=== PATIENT | male | born 1985 | race Caucasian/White ===

== ENCOUNTER 2022-06-17 16:20 | Emergency (ER) | payer MEDICAID ==
[~2022-06-17] VITALS: Ht 182.9 cm; Wt 75.0 kg
[2022-06-17 16:37] VITALS: BP 126/84
[2022-06-17] MEDS ORDERED: bacitracin 15gm ointment TP ONE (18:55)
[2022-06-17] MEDS ORDERED: LIDOCAINE 2%/EPI 1:100,000 inj. Multi-dose 20 ML VIAL IJ ONE (18:55)
== END 2022-06-17 20:01 | disposition home or self-care (01) ==
LOC: ER 16:22
DX: S01.81XA Laceration without foreign body of other part of head, initial encounter (principal); F17.200 Nicotine dependence, unspecified, uncomplicated; W19.XXXA Unspecified fall, initial encounter; Y93.89 Activity, other specified; Y92.89 Other specified places as the place of occurrence of the external cause; Y99.8 Other external cause status
CPT/HCPCS: 12001; 99282

== ENCOUNTER 2022-08-21 15:19 | Inpatient (IN) | payer BC, MEDICAID ==
[~2022-08-21] VITALS: Ht 182.9 cm; Wt 165.0 kg
[2022-08-21] MEDS ORDERED: ondansetron/PF 4mg/2ml inj IV ONE (15:50)
[2022-08-21] MEDS ORDERED: morphine 4 MG/ML inj SYRINge IV ONE (15:50)
[2022-08-21 15:59] LABS: BASOPHILS # (AUTO) 0.1 X10'3 (0-0.2); BASOPHILS % (AUTO) 0.7 % (0-1); EOSINOPHILS # (AUTO) 0.2 X10'3 (0-0.9); EOSINOPHILS % (AUTO) 1.5 % (0-6); HEMOGLOBIN 14.5 g/dl (14.0-17.9); LYMPHOCYTES # (AUTO) 3.3 X10'3 (1.1-4.8); LYMPHOCYTES % (AUTO) 23.9 % (21-51); MEAN CORPUSCULAR HEMOGLOBIN 28.2 PG (27.0-31.0); MEAN CORPUSCULAR HGB CONC 33.7 g/dL (33.0-36.5); MEAN CORPUSCULAR VOLUME 83.6 FL (78-98); MEAN PLATELET VOLUME 8.4 FL (7.4-10.4); MONOCYTES # (AUTO) 1.2 X10'3 (0-0.9); MONOCYTES % (AUTO) 8.4 % (2-12); NEUTROPHILS % (AUTO) 65.5 % (42-75); PLATELET COUNT 321 X10'3 (140-440); RED BLOOD COUNT 5.15 X10'6 (4.70-6.10); WHITE BLOOD COUNT 13.7 X10'3 (4.5-11.0)
[2022-08-21 16:09] LABS: ALANINE AMINOTRANSFERASE 47 U/L (12-78); ALBUMIN 3.9 G/DL (3.4-5.0); ALBUMIN/GLOBULIN RATIO 1.1 (1.1-1.5); ALKALINE PHOSPHATASE 95 IU/L (46-116); ANION GAP 8 (8-16); ASPARTATE AMINO TRANSFERASE 20 U/L (10-37); BILIRUBIN,TOTAL 0.2 MG/DL (0.1-1.0); BLOOD UREA NITROGEN 9 MG/DL (7-18); BUN/CREATININE RATIO 10.2 (10.0-20.0); CALCIUM 9.2 MG/DL (8.5-10.1); CHLORIDE 107 MMOL/L (99-107); CREATININE 0.88 MG/DL (0.60-1.10); GLUCOSE 99 MG/DL (70-104); LIPASE 269 U/L (73-393); POTASSIUM 3.9 MMOL/L (3.5-5.1); SODIUM 141 MMOL/L (135-145); TOTAL CARBON DIOXIDE 26.1 MMOL/L (24-32); TOTAL PROTEIN 7.5 G/DL (6.4-8.2); eGFR > 90 ML/MIN
[2022-08-21 16:25] LABS: CLARITY,URINE CLEAR (Clear); COLOR,URINE YELLOW (Yellow); GLUCOSE, URINE NEGATIVE (Neg); KETONES,URINE NEGATIVE (Neg); LEUKOCYTE ESTERASE ,URINE NEGATIVE (Neg); NITRITES, URINE NEGATIVE (Neg); OCCULT BLOOD,URINE NEGATIVE (Neg); PROTEIN,URINE NEGATIVE (Neg); UROBILINOGEN,URINE 0.2 E.U/dL (0.2-1.0)
[2022-08-21 16:26] LABS: UA COLLECTION TYPE CLN CATCH MIDSTREAM
[2022-08-21] MEDS ORDERED: HYDROmorphone 1 mg/ml syringe IV ONE ×2 (16:45→19:35)
--- NOTE | 2022-08-21 17:00 | NUR ---
REPORT GIVEN TO SUN FIGUEROA. PT GOING TO ROOM 6201N
[2022-08-21] MEDS ORDERED: diphenhydrAMINE 25mg capsule PO PRN (19:25)
[2022-08-21] MEDS ORDERED: magnesium 4gm in 100ml NS 100 ML IV PRN (19:25)
[2022-08-21] MEDS ORDERED: HYDROmorphone/PF 0.2 MG/ML SYRINGE IV PRN (19:25)
[2022-08-21] MEDS ORDERED: potassium Cl 40MEQ/1/2NS 520ml 520 ML IV PRN (19:25)
[2022-08-21] MEDS ORDERED: mag hydrox/Alum hydrox/simeth 30ml oral suspension PO PRN (19:25)
[2022-08-21] MEDS ORDERED: magnesium hydroxide 30ml (MOM) UD suspension PO PRN (19:25)
[2022-08-21] MEDS ORDERED: magnesium Cl slow-release 64mg tablet PO PRN (19:25)
[2022-08-21] MEDS ORDERED: ondansetron/PF 4mg/2ml inj IV PRN (19:25)
[2022-08-21] MEDS ORDERED: HYDROmorphone inj. 0.5 MG/0.5 ML DISP.SYRIN IV PRN (19:25)
[2022-08-21] MEDS ORDERED: magnesium 2GM in 50ml NS 50 ML IV PRN (19:25)
[2022-08-21] MEDS ORDERED: acetaminophen 325mg tablet PO PRN (19:25)
[2022-08-21] MEDS ORDERED: potassium Cl 20 mEq SR tablet PO PRN ×2 (19:25)
[2022-08-21] MEDS: dextrose 5%-1/2 normal saline 1,000 ML IV SCH (19:44)
[2022-08-21] MEDS: K and/or MAG REPLACEMENT MC SCH (20:11)
[2022-08-21] MEDS: enoxaparin 40mg/0.4ml syringe SQ SCH (20:14)
[2022-08-21] MEDS: docusate sod 100mg capsule PO SCH (20:14)
[2022-08-21] MEDS: HYDROmorphone inj. 0.5 MG/0.5 ML DISP.SYRIN IV PRN (23:51)
[2022-08-22] VITALS (15 sets, daily range): BP systolic 108–138; BP diastolic 62–84
[2022-08-22] MEDS: piperacillin/tazo 3.375gm/50ml 50 ML IV SCH ×4 (00:40→23:41)
[2022-08-22] MEDS ORDERED: NO HOME MEDS (02:39)
[2022-08-22] MEDS: HYDROmorphone inj. 0.5 MG/0.5 ML DISP.SYRIN IV PRN ×4 (03:55→21:13)
[2022-08-22] MEDS: dextrose 5%-1/2 normal saline 1,000 ML IV SCH ×2 (05:54→15:31)
[2022-08-22 06:50] LABS: BASOPHILS % (AUTO) 0.4 % (0-1); EOSINOPHILS # (AUTO) 0.1 X10'3 (0-0.9); EOSINOPHILS % (AUTO) 0.5 % (0-6); HEMATOCRIT 38.6 % (42.0-52.0); HEMOGLOBIN 13.3 g/dl (14.0-17.9); LYMPHOCYTES % (AUTO) 15.3 % (21-51); MEAN CORPUSCULAR HEMOGLOBIN 28.5 PG (27.0-31.0); MEAN CORPUSCULAR HGB CONC 34.4 g/dL (33.0-36.5); MEAN CORPUSCULAR VOLUME 82.8 FL (78-98); MEAN PLATELET VOLUME 8.3 FL (7.4-10.4); MONOCYTES # (AUTO) 1.2 X10'3 (0-0.9); MONOCYTES % (AUTO) 9.1 % (2-12); NEUTROPHILS # (AUTO) 9.9 X10'3 (1.8-7.7); NEUTROPHILS % (AUTO) 74.7 % (42-75); PLATELET COUNT 299 X10'3 (140-440); RED BLOOD COUNT 4.66 X10'6 (4.70-6.10); RED CELL DISTRIBUTION WIDTH 13.1 % (11.5-14.5); WHITE BLOOD COUNT 13.3 X10'3 (4.5-11.0)
[2022-08-22 07:13] LABS: ALANINE AMINOTRANSFERASE 254 U/L (12-78); ALBUMIN 3.6 G/DL (3.4-5.0); ALBUMIN/GLOBULIN RATIO 1.1 (1.1-1.5); ALKALINE PHOSPHATASE 118 IU/L (46-116); ANION GAP 8 (8-16); ASPARTATE AMINO TRANSFERASE 172 U/L (10-37); BILIRUBIN,TOTAL 1.3 MG/DL (0.1-1.0); BLOOD UREA NITROGEN 6 MG/DL (7-18); BUN/CREATININE RATIO 6.5 (10.0-20.0); CALCIUM 8.4 MG/DL (8.5-10.1); CHLORIDE 103 MMOL/L (99-107); CREATININE 0.93 MG/DL (0.60-1.10); GLUCOSE 147 MG/DL (70-104); MAGNESIUM 2.1 MG/DL (1.5-2.4); POTASSIUM 3.5 MMOL/L (3.5-5.1); SODIUM 137 MMOL/L (135-145); TOTAL CARBON DIOXIDE 26.4 MMOL/L (24-32); eGFR > 90 ML/MIN
[2022-08-22] MEDS: pantoprazole 40mg Tablet.DR PO SCH (07:30)
[2022-08-22] MEDS: docusate sod 100mg capsule PO SCH ×2 (08:00→21:07)
[2022-08-22] MEDS: K and/or MAG REPLACEMENT MC SCH ×2 (08:00→20:00)
[2022-08-22] MEDS ORDERED: INDOCYANINE GREEN 25 MG/10 ML VIAL IV ONE (09:20)
[2022-08-22] MEDS ORDERED: BUPIVAcaine/PF 2.5 mg/ml (0.25%) 30ml vial ONE (10:03)
[2022-08-22] MEDS ORDERED: proCHLORperazine 10 MG/2 ml inj IV PRN (10:05)
[2022-08-22] MEDS ORDERED: morphine 4 MG/ML inj SYRINge IV PRN (10:05)
[2022-08-22] MEDS ORDERED: meperidine/PF 25mg/ml syringe IV PRN ×3 (10:05)
[2022-08-22] MEDS ORDERED: ondansetron/PF 4mg/2ml inj IV PRN ×2 (10:05→11:40)
[2022-08-22] MEDS ORDERED: morphine 2 MG/ML inj. syringe IV PRN (10:05)
[2022-08-22] MEDS ORDERED: ringers solution, lacted 1,000 ML IV SCH (10:05)
[2022-08-22] MEDS ORDERED: sevoflurane 250ml liquid IH ONE (10:25)
[2022-08-22] MEDS ORDERED: neostigmine methylsulfate 1 MG/ML 10ml vial ONE (10:25)
[2022-08-22] MEDS ORDERED: glycopyrrolate 0.2mg/ml inj ONE (10:25)
[2022-08-22] MEDS ORDERED: midazolam 1 mg/ML 2ml injection ONE (10:30)
[2022-08-22] MEDS ORDERED: fentaNYL/PF 50MCG/1 ML 2ML syringe ONE ×2 (10:30→10:40)
[2022-08-22] MEDS ORDERED: ondansetron/PF 4mg/2ml inj ONE (11:38)
[2022-08-22] MEDS ORDERED: dexamethasone sod phosphate 4mg/ml inj. ONE (11:38)
[2022-08-22] MEDS ORDERED: propofol inj 20 ML IV ONE (11:38)
[2022-08-22] MEDS ORDERED: rocuronium 10mg/ml inj IV ONE (11:38)
[2022-08-22] MEDS ORDERED: LIDOcaine 2% (20mg/ml) 5ml vial ONE (11:38)
[2022-08-22] MEDS ORDERED: sugammadex 200mg/2ml injection IV ONE (11:38)
[2022-08-22] MEDS ORDERED: naloxone 0.4 mg/ml inj IV PRN (11:40)
--- NOTE | 2022-08-22 11:40 | NUR ---
Received from OR via BED , accompanied by Anesthesiologist and report given by ALVARADO Anesthesiologist. PATIENT UNCONSCIOUS AND SEDATED WITH ETT TUBE, NO S/S OF PAIN, V/S WNL, SCD ON , PIV 18G RIGHT HAND, BANDAID LAPS SITES C/D/I TO ABDOMEN WITH SEROSANGUINEOUS DARYL DRAINAGE ON RIGHT LOWER ABDOMEN. Addendum: 08/22/22 at 1216 by Tevin Loyd RN Amended: Links added.
--- NOTE | 2022-08-22 12:19 | NUR ---
Patient in room ED 9. I have received report from Landon and had the opportunity to ask questions and assume patient care.
--- NOTE | 2022-08-22 12:35 | NUR ---
PATIENT HAS MET ALL CRITERIA FOR TRANSFER TO ORTHO FLOOR. VSS. DRESSINGS INTACT. BED LOW, CALL LIGHT PRESENT AND 2 RAILS UP. RN PRESENT TO ACCEPT CARE OF PATIENT AND REPORT HAS BEEN CALLED. ALL QUESTIONS ANSWERED TO ACCEPTING RN. Addendum: 08/22/22 at 1241 by Tevin Loyd RN Amended: Links added.
[2022-08-22] MEDS: HYDROcodone/acetaminophen 10/325mg tab PO PRN (16:37)
--- NOTE | 2022-08-22 16:39 | NUR ---
Current wt is not scaled and not accurate given pt presentation. Wt in lbs likely documented in kg. If true, pt 75 kg and BMI 22.4. Per EMR pt with chair scaled wt of 75 kg 06/17/22. Addendum: 08/22/22 at [address] Amended: Links added.
--- NOTE | 2022-08-22 18:25 | NUR ---
Problems reprioritized. Patient report given, questions answered & plan of care reviewed with Stacy.
[2022-08-22] MEDS: enoxaparin 40mg/0.4ml syringe SQ SCH (21:19)
[2022-08-23] MEDS: dextrose 5%-1/2 normal saline 1,000 ML IV SCH ×3 (01:25→21:25)
[2022-08-23] MEDS: HYDROmorphone inj. 0.5 MG/0.5 ML DISP.SYRIN IV PRN ×3 (01:45→09:46)
[2022-08-23 02:00] VITALS: BP 146/69
[2022-08-23 06:00] VITALS: BP 127/71
--- NOTE | 2022-08-23 06:24 | NUR ---
Problems reprioritized. Patient report given, questions answered & plan of care reviewed with Josselin GARSIA. Addendum: 08/23/22 at 0624 by Stacy Rahman RN Amended: Links added.
[2022-08-23 06:48] LABS: BASOPHILS # (AUTO) 0.1 X10'3 (0-0.2); BASOPHILS % (AUTO) 0.4 % (0-1); EOSINOPHILS % (AUTO) 0 % (0-6); HEMATOCRIT 36.9 % (42.0-52.0); HEMOGLOBIN 12.6 g/dl (14.0-17.9); LYMPHOCYTES # (AUTO) 1.7 X10'3 (1.1-4.8); LYMPHOCYTES % (AUTO) 9.2 % (21-51); MEAN CORPUSCULAR HEMOGLOBIN 28.5 PG (27.0-31.0); MEAN CORPUSCULAR HGB CONC 34.2 g/dL (33.0-36.5); MEAN CORPUSCULAR VOLUME 83.6 FL (78-98); MEAN PLATELET VOLUME 8.8 FL (7.4-10.4); MONOCYTES # (AUTO) 1.5 X10'3 (0-0.9); MONOCYTES % (AUTO) 8.1 % (2-12); NEUTROPHILS # (AUTO) 15.6 X10'3 (1.8-7.7); NEUTROPHILS % (AUTO) 82.3 % (42-75); PLATELET COUNT 294 X10'3 (140-440); RED BLOOD COUNT 4.41 X10'6 (4.70-6.10); RED CELL DISTRIBUTION WIDTH 12.9 % (11.5-14.5); WHITE BLOOD COUNT 18.9 X10'3 (4.5-11.0)
[2022-08-23 07:00] LABS: ALANINE AMINOTRANSFERASE 197 U/L (12-78); ALBUMIN 3.3 G/DL (3.4-5.0); ALBUMIN/GLOBULIN RATIO 0.9 (1.1-1.5); ALKALINE PHOSPHATASE 128 IU/L (46-116); ANION GAP 5 (8-16); ASPARTATE AMINO TRANSFERASE 63 U/L (10-37); BILIRUBIN,TOTAL 0.7 MG/DL (0.1-1.0); BLOOD UREA NITROGEN 4 MG/DL (7-18); BUN/CREATININE RATIO 4.3 (10.0-20.0); CALCIUM 8.6 MG/DL (8.5-10.1); CHLORIDE 102 MMOL/L (99-107); CREATININE 0.92 MG/DL (0.60-1.10); GLUCOSE 164 MG/DL (70-104); MAGNESIUM 2.2 MG/DL (1.5-2.4); POTASSIUM 3.6 MMOL/L (3.5-5.1); SODIUM 137 MMOL/L (135-145); TOTAL CARBON DIOXIDE 29.9 MMOL/L (24-32); TOTAL PROTEIN 6.9 G/DL (6.4-8.2); eGFR > 90 ML/MIN
[2022-08-23] MEDS: pantoprazole 40mg Tablet.DR PO SCH (07:53)
[2022-08-23] MEDS: docusate sod 100mg capsule PO SCH ×2 (07:53→19:30)
[2022-08-23] MEDS: K and/or MAG REPLACEMENT MC SCH ×2 (07:54→19:17)
[2022-08-23] MEDS: HYDROcodone/acetaminophen 10/325mg tab PO PRN (07:54)
[2022-08-23] MEDS: piperacillin/tazo 3.375gm/50ml 50 ML IV SCH ×3 (07:54→23:42)
[2022-08-23 10:00] VITALS: BP 143/83
--- NOTE | 2022-08-23 14:39 | NUR ---
patient reports passing flatus at this time. Continuing to encouraging ambulation as tolerated. Will continue to monitor
[2022-08-23 18:00] VITALS: BP 132/67
--- NOTE | 2022-08-23 18:22 | NUR ---
Problems reprioritized. Patient report given, questions answered & plan of care reviewed with Stacy GARSIA.
[2022-08-23] MEDS: enoxaparin 40mg/0.4ml syringe SQ SCH (19:28)
[2022-08-23] MEDS: oxyCODONE/APAP 5-325mg tablet PO PRN (19:30)
[2022-08-23 22:00] VITALS: BP 111/70
[2022-08-24] MEDS: oxyCODONE/APAP 5-325mg tablet PO PRN ×2 (00:17→04:26)
[2022-08-24] MEDS: HYDROmorphone inj. 0.5 MG/0.5 ML DISP.SYRIN IV PRN ×2 (02:19→12:28)
[2022-08-24 05:40] LABS: ALANINE AMINOTRANSFERASE 212 U/L (12-78); ALBUMIN 3.5 G/DL (3.4-5.0); ALKALINE PHOSPHATASE 138 IU/L (46-116); ANION GAP 7 (8-16); ASPARTATE AMINO TRANSFERASE 89 U/L (10-37); BILIRUBIN,TOTAL 0.8 MG/DL (0.1-1.0); BLOOD UREA NITROGEN 4 MG/DL (7-18); BUN/CREATININE RATIO 3.7 (10.0-20.0); CALCIUM 8.8 MG/DL (8.5-10.1); CHLORIDE 105 MMOL/L (99-107); CREATININE 1.09 MG/DL (0.60-1.10); GLUCOSE 119 MG/DL (70-104); MAGNESIUM 2.1 MG/DL (1.5-2.4); POTASSIUM 3.4 MMOL/L (3.5-5.1); SODIUM 141 MMOL/L (135-145); TOTAL PROTEIN 7.1 G/DL (6.4-8.2); eGFR 77 ML/MIN
[2022-08-24 06:05] LABS: BASOPHILS # (AUTO) 0.1 X10'3 (0-0.2); BASOPHILS % (AUTO) 0.8 % (0-1); EOSINOPHILS # (AUTO) 0.1 X10'3 (0-0.9); EOSINOPHILS % (AUTO) 0.4 % (0-6); HEMATOCRIT 38.9 % (42.0-52.0); LYMPHOCYTES # (AUTO) 3.8 X10'3 (1.1-4.8); LYMPHOCYTES % (AUTO) 24.1 % (21-51); MEAN CORPUSCULAR HEMOGLOBIN 28.3 PG (27.0-31.0); MEAN CORPUSCULAR HGB CONC 33.5 g/dL (33.0-36.5); MEAN CORPUSCULAR VOLUME 84.4 FL (78-98); MEAN PLATELET VOLUME 9.5 FL (7.4-10.4); MONOCYTES # (AUTO) 1.7 X10'3 (0-0.9); MONOCYTES % (AUTO) 10.6 % (2-12); NEUTROPHILS # (AUTO) 10.1 X10'3 (1.8-7.7); NEUTROPHILS % (AUTO) 64.1 % (42-75); PLATELET COUNT 318 X10'3 (140-440); RED BLOOD COUNT 4.61 X10'6 (4.70-6.10); RED CELL DISTRIBUTION WIDTH 13.2 % (11.5-14.5); WHITE BLOOD COUNT 15.8 X10'3 (4.5-11.0)
--- NOTE | 2022-08-24 06:33 | NUR ---
Patient in room ORTHO 4009. I have received report from [email or web address] and had the opportunity to ask questions and assume patient care.
[2022-08-24 06:34] VITALS: BP 128/62
[2022-08-24] MEDS: dextrose 5%-1/2 normal saline 1,000 ML IV SCH (07:25)
[2022-08-24] MEDS: pantoprazole 40mg Tablet.DR PO SCH (07:30)
[2022-08-24] MEDS: docusate sod 100mg capsule PO SCH (07:30)
[2022-08-24] MEDS: piperacillin/tazo 3.375gm/50ml 50 ML IV SCH (07:30)
[2022-08-24] MEDS: K and/or MAG REPLACEMENT MC SCH (08:00)
[2022-08-24] MEDS ORDERED: LORazepam 0.5 MG tablet PO PRN (09:50)
[2022-08-24 10:00] VITALS: BP 120/66
[2022-08-24] MEDS ORDERED: PER5325T PO (10:40)
--- NOTE | 2022-08-24 12:40 | NUR ---
Reviewed discharge instructions with patient. Patient verbalized understanding. Patient dressed himself, gathered his belongings and was wheeled downstairs by staff to be driven home by his father. DARYL drain pulled out, patient tolerated well. Patient was provided with surgeon's office number and advised to phone on Friday for a follow up appointment.
== END 2022-08-24 13:44 | disposition home or self-care (01) | DRG 416 ==
LOC: ER 15:20 → ED HOLD 19:33 → ORTHO 4S 08-22 12:35
PROVIDERS: ADMIT Internal Medicine; ATTEND Family Medicine
PROC: 8E0W0CZ Robotic Assisted Procedure of Trunk Region, Open Approach (ICD-10-PCS; 2022-08-22)
PROC: 0FT40ZZ Resection of Gallbladder, Open Approach (ICD-10-PCS; principal; 2022-08-22 10:25)
DX: K80.62 Calculus of gallbladder and bile duct with acute cholecystitis without obstruction (principal); F15.10 Other stimulant abuse, uncomplicated; D72.829 Elevated white blood cell count, unspecified; R74.01 Elevation of levels of liver transaminase levels; F17.210 Nicotine dependence, cigarettes, uncomplicated; Z71.6 Tobacco abuse counseling; Z71.51 Drug abuse counseling and surveillance of drug abuser
CPT/HCPCS: 99285; Z7506; Z7508; 36415; 74176; 76700; 80053; 81003; 83690; 83735; 84132; 85025; 87081; A4215; A4615; A4618; A6402; A7000; G0378; J1100; J1170; J1650; J2175; J2250; J2270; J2405; J2543; J2704; J2710; J3010; J3490; J7070; J7120

== ENCOUNTER 2023-10-19 17:22 | Emergency (ER) | payer BC, MEDICAID ==
[~2023-10-19] VITALS: Ht 182.9 cm; Wt 82.7 kg
[2023-10-19 18:48] LABS: BASOPHILS # (AUTO) 0.1 X10'3 (0-0.2); BASOPHILS % (AUTO) 0.7 % (0-1); EOSINOPHILS # (AUTO) 0.1 X10'3 (0-0.9); EOSINOPHILS % (AUTO) 0.9 % (0-6); HEMATOCRIT 34.8 % (42.0-52.0); HEMOGLOBIN 11.9 g/dl (14.0-17.9); LYMPHOCYTES # (AUTO) 2.3 X10'3 (1.1-4.8); LYMPHOCYTES % (AUTO) 23.5 % (21-51); MEAN CORPUSCULAR HEMOGLOBIN 29.3 PG (27.0-31.0); MEAN CORPUSCULAR HGB CONC 34.2 g/dL (33.0-36.5); MEAN CORPUSCULAR VOLUME 85.7 FL (78-98); MEAN PLATELET VOLUME 8.9 FL (7.4-10.4); MONOCYTES # (AUTO) 1.1 X10'3 (0-0.9); MONOCYTES % (AUTO) 11.3 % (2-12); NEUTROPHILS # (AUTO) 6.3 X10'3 (1.8-7.7); NEUTROPHILS % (AUTO) 63.6 % (42-75); PLATELET COUNT 275 X10'3 (140-440); RED BLOOD COUNT 4.07 X10'6 (4.70-6.10); RED CELL DISTRIBUTION WIDTH 13.3 % (11.5-14.5)
[2023-10-19 18:54] LABS: ALANINE AMINOTRANSFERASE 57 U/L (12-78); ALBUMIN 3.7 G/DL (3.4-5.0); ALBUMIN/GLOBULIN RATIO 1.1 (1.1-1.5); ALKALINE PHOSPHATASE 85 IU/L (46-116); ANION GAP 8 (8-16); ASPARTATE AMINO TRANSFERASE 22 U/L (10-37); BILIRUBIN,TOTAL 0.9 MG/DL (0.1-1.0); BLOOD UREA NITROGEN 12 MG/DL (7-18); BUN/CREATININE RATIO 10.4 (10.0-20.0); CALCIUM 8.4 MG/DL (8.5-10.1); CHLORIDE 107 MMOL/L (99-107); CREATININE 1.15 MG/DL (0.60-1.10); GLUCOSE 104 MG/DL (70-104); POTASSIUM 3.2 MMOL/L (3.5-5.1); SODIUM 140 MMOL/L (135-145); TOTAL CARBON DIOXIDE 24.6 MMOL/L (24-32); TOTAL PROTEIN 7.1 G/DL (6.4-8.2); eCRCL 96 ML/MIN; eGFR 71 ML/MIN
[2023-10-19 18:56] LABS: CREATINE KINASE 423 U/L (39-308)
[2023-10-19] MEDS: normal saline 1000ml 1,000 ML IV ONE ×2 (19:14→19:15)
[2023-10-19 19:19] VITALS: BP 130/81; PULSE 72; RESP 16; O2SAT 100
[2023-10-19] MEDS: potassium Cl 20 mEq SR tablet PO STA (20:33)
[2023-10-19 20:43] VITALS: TEMP 97.7
== END 2023-10-19 20:46 | disposition home or self-care (01) ==
LOC: ER 17:23
DX: T67.5XXA Heat exhaustion, unspecified, initial encounter (principal); F17.200 Nicotine dependence, unspecified, uncomplicated; X58.XXXA Exposure to other specified factors, initial encounter; Y93.89 Activity, other specified; Y92.89 Other specified places as the place of occurrence of the external cause; Y99.8 Other external cause status
CPT/HCPCS: 36415; 80053; 82550; 85025; 93005; 96360; 99284; J7030

== ENCOUNTER 2025-02-20 15:50 | Emergency (ER) | payer MEDICAID ==
[~2025-02-20] VITALS: Ht 177.8 cm; Wt 83.4 kg
[2025-02-20 15:54] VITALS: BP 138/95; PULSE 89; RESP 16; O2SAT 99
--- NOTE | 2025-02-20 15:59 | Physician Documentation ---
HPI ~ General Chief Complaint: Tooth Problem Stated Complaint: TOOTH PAIN Time Seen by MD: 16:16 Primary Medical Doctor: [facility] History of Present Illness HPI Comment Patient is a very pleasant 39-year-old male that presents to the emergency department for evaluation of upper right tooth pain and swelling to the associated gumline. Patient reports he has had swelling and pain at the gumline this is adjacent to a fractured tooth with a cavity times 2-3 days. Patient denies fever chills nausea vomiting diarrhea. Patient reports he has been taking Tylenol and ibuprofen with some relief. Patient does not have a dentist but we will attempt to get set up with a dentist. Patient currently has no difficulty swallowing no airway issues no significant lymphadenopathy noted on exam. Medication Reconciliation Allergies: Coded Allergies: No Known Allergies (Unverified , 08/21/22) Past Medical History Past Medical History: No Pertinent History Past Surgical History: no surgical history Alcohol Use: Occasionally Drug Use: none Lives with: Family Lives In: Home Occupation: employed Review of Systems ROS As stated above in the HPI, otherwise all systems are reviewed and negative. Physical Exam Vital Signs: Temperature: 98.2, Source: Temporal, Heart Rate: 89, Respiratory Rate: 16, BP: 138/95, Pulse Oximetry: 99, Weight: 83.400 Oxygen Flow Rate: 0 Physical Exam VITALS: Reviewed and as above. GENERAL: Alert, no apparent distress. HEENT: Normocephalic, atraumatic, PERRL, EOMI, dry mucosa, no erythema, mild edema noted to the right buccal area, edema with a small abscess noted to the gumline adjacent to a fractured tooth with an obvious dental marline at appro ximately the 2nd to 3rd molar on the upper right jaw. RESPIRATORY: Lungs clear, normal breath sounds, no respiratory distress. CHEST: No accessory muscle use, no retractions CV: Regular rate, rhythm, no edema, no murmur, No: JVD GI: Soft, non-tender, bowels sounds present, no rebound, guarding, or rigidity BACK: No CVA tenderness, or swelling MUSCULOSKELETAL No deformities, no edema SKIN: Warm and dry, no rash NEURO: Oriented x4, No motor or sensory deficit PSYCH: Normal mood and affect, no agitation Progress Results/Orders Results/Orders Vital Signs 02/20/25 15:54 Temp 98.2 Pulse 89 Resp 16 B/P (MAP) 138/95 Pulse Ox 99 O2 Flow Rate 0 Medical Decision Making Additional information obtaine: other Findings Assessment: 39-year-old male presents with acute right upper jaw pain, fractured tooth, and localized swelling at the gumline near the second to third molar. Pain is significant and partially controlled with acetaminophen and ibuprofen. No evidence of systemic involvement (no fever, malaise, airway compromise). Findings are consistent with a localized dental abscess or pulp necrosis with symptomatic apical periodontitis. Medical Decision Making: Pain Management: First-line therapy is a combination of NSAIDs and acetaminophen, which is supported by ADA guidelines and recent evidence for superior efficacy and safety over opioids in acute dental pain. The patient is already using these agents with partial relief. Antibiotic Therapy: Given the presence of localized swelling and inability to ac cess definitive dental care immediately, empiric antibiotics are indicated per ADA guidelines. Oral amoxicillin (500 mg TID for 37 days) is preferred unless contraindicated by allergy. Alternatives for penicillin allergy include cephalexin, azithromycin, or clindamycin, with careful monitoring for adverse effects. Antibiotics should be discontinued 24 hours after symptom resolution, and the patient should be reevaluated within 3 days. Definitive Care: The patient requires urgent dental follow-up for definitive management (root canal, extraction, or incision/drainage as indicated). Medical therapy is a bridge, not a substitute for dental intervention. Monitoring and Safety: The patient is instructed to seek immediate care if symptoms worsen (progression of swelling, fever, difficulty swallowing/breathing), and to report any adverse drug reactions. Disposition: Discharged with antibiotics, analgesics, and instructions for urgent dental follow-up. No evidence of deep space infection or systemic toxicity at this time. Rationale: Management aligns with ADA guidelines for acute dental pain and infection in settings where definitive dental treatment is not immediately available. Antibiotics are reserved for cases with abscess or swelling, and pain control is optimized with non-opioid agents. Differential Dx:Considerations: Include: Alveolar fracture, Alveolar osteitis, ANUG, Facial Cellulitis, Periapical abscess, Peridontal abscess, Post-extraction bleeding, Pulpitis, Tooth avulsion, Tooth eruption, Tooth Fracture, Trigeminal neuralgia, Tooth subluxation, Other Departure Disposition: 01 HOME / SELF CARE / HOMELESS Impression: Primary Impression: Toothache Additional Impression: Dental abscess Condition: Stable Discharge Instructions: Dental Caries, Adult, Dental Abscess Additional Instructions: You have been diagnosed with a dental infection related to a fractured tooth and gum swelling. You are being prescribed amoxicillin-clavulanate (Augmentin) 875 mg to take every 12 hours for 10 days. Take Augmentin exactly as prescribed. Take one 875 mg tablet every 12 hours (m orning and evening), ideally at the start of a meal to reduce stomach upset. Do not skip doses, and do not stop early unless instructed by your doctor or dentist. If you miss a dose, take it as soon as you remember, but do not double up on doses. Finish the full course unless your symptoms resolve sooner. If your pain and swelling resolve, you may stop the antibiotic 24 hours after all symptoms are gone, as long as you have taken at least several days of treatment. If symptoms persist, complete the full 10-day course or as directed by your provider. Monitor for side effects. Common side effects include mild diarrhea, nausea, or rash. If you develop severe diarrhea (watery, bloody stools), a widespread rash, difficulty breathing, or swelling of the face or throat, stop the medication and seek medical attention immediately. Pain management: You may continue to use acetaminophen (Tylenol) and/or ibuprofen as needed for pain, unless otherwise instructed. These are the preferred medications for dental pain and can be taken together if needed, following package instructions. Follow up with a dentist as soon as possible. Antibiotics and pain medications are not a cure for dental infections. Definitive treatment (such as a root canal or extraction) is needed to fully resolve the infection and prevent recurrence or complications. Contact your dentist or primary care provider promptly for follow-up. Return to the emergency department or call your doctor if you experience: Worsening pain, swelling, or redness Fever, chills, or feeling very unwell Difficulty swallowing, breathing, or opening your mouth No improvement after 2-3 days of antibiotics General care: Maintain good oral hygiene, avoid chewing on the affected side, and eat soft foods as tolerated until definitive dental care is completed. If you have any questions about your medication or symptoms, contact your healthcare provider. Referrals: NO PRIMARY CARE PROVIDER (PCP) Prescriptions Amox Tr/Potassium Clavulanate (Augmentin 875-125 Tablet) 1 Each Tablet 1 TAB PO Q12H for 10 Days, #20 TAB Prov: EDGARDO LLOYDP 02/20/25 Education Educated: Patient Educated regarding: diagnosis, treatment, need for follow up EDGARDO [facility] Feb 20, 2025 15:59
[2025-02-20] MEDS ORDERED: AMOX-117 PO (16:25)
[2025-02-20] MEDS: amox tr/potassium clavulanate 875/125mg TAB PO ONE (16:36)
[2025-02-20 16:38] VITALS: TEMP 98.2
== END 2025-02-20 16:41 | disposition home or self-care (01) ==
LOC: ER 15:52
DX: K04.7 Periapical abscess without sinus (principal)
CPT/HCPCS: 99283